=== PATIENT | female | born 2000 | race Native Hawaiian/Other Pacific Islander ===

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

== ENCOUNTER 2020-12-26 21:18 | Emergency (ER) | payer OTHER ==
[~2020-12-26] VITALS: Ht 165.1 cm; Wt 728.0 kg
[2020-12-26 22:43] VITALS: TEMP 98.1
[2020-12-27 01:17] VITALS: BP 98/43
== END 2020-12-27 01:31 | disposition home or self-care (01) ==
LOC: ED 21:18
PROC: 0HQDXZZ Repair Right Lower Arm Skin, External Approach (ICD-10-PCS; principal; 2020-12-26)
PROC: 0HQBXZZ Repair Right Upper Arm Skin, External Approach (ICD-10-PCS; 2020-12-26)
DX: S51.811A Laceration without foreign body of right forearm, initial encounter (principal); S41.011A Laceration without foreign body of right shoulder, initial encounter; W01.198A Fall on same level from slipping, tripping and stumbling with subsequent striking against other object, initial encounter; Y92.89 Other specified places as the place of occurrence of the external cause
CPT/HCPCS: 90471; 90715; 96372; 99283; J0696; J1885